=== PATIENT | female | born 1960 | race Caucasian/White ===

== ENCOUNTER 2018-11-13 14:13 | Outpatient (CLI) | payer MEDICAID ==
[~2018-11-13] VITALS: Ht 170.2 cm; Wt 86.4 kg
[2018-11-13 14:49] VITALS: BP 117/80; Ht 170.2 cm; Wt 86.4 kg
== END 2018-11-13 15:20 | disposition home or self-care (01) ==
LOC: D.OPS 14:13
PROVIDERS: ATTEND Emergency Medicine
DX: M18.0 Bilateral primary osteoarthritis of first carpometacarpal joints (principal)

== ENCOUNTER 2019-04-18 09:00 | Outpatient (CLI) | payer MEDICAID ==
[2018-11-13 14:49] VITALS: BMI 29.8
== END 2019-04-18 10:00 | disposition home or self-care (01) ==
LOC: D.MAMMO 09:00
PROVIDERS: ATTEND Emergency Medicine
DX: Z12.31 Encounter for screening mammogram for malignant neoplasm of breast (principal)

== ENCOUNTER → 2019-08-18 13:54 | Outpatient (CLI) | payer BC ==
[2018-11-13 14:49] VITALS: BMI 29.8
== END | disposition home or self-care (01) ==
LOC: D.RT 13:54
PROVIDERS: ATTEND Internal Medicine Pulmonary Disease
DX: J44.9 Chronic obstructive pulmonary disease, unspecified (principal)

== ENCOUNTER → 2019-08-21 16:26 | Outpatient (CLI) | payer BC ==
[2018-11-13 14:49] VITALS: BMI 29.8
== END | disposition home or self-care (01) ==
LOC: D.LABREF 16:26
PROVIDERS: ATTEND Internal Medicine Pulmonary Disease
DX: J44.9 Chronic obstructive pulmonary disease, unspecified (principal)

== ENCOUNTER 2020-11-24 15:45 | Outpatient (CLI) | payer BC ==
[2018-11-13 14:49] VITALS: BMI 29.8
== END 2020-11-24 16:15 | disposition home or self-care (01) ==
LOC: D.MAMMO 15:45
PROVIDERS: ATTEND Emergency Medicine
DX: Z12.31 Encounter for screening mammogram for malignant neoplasm of breast (principal)